=== PATIENT | female | born 1955 | race Caucasian/White ===

== ENCOUNTER 2021-04-27 14:59 | Outpatient (CLI) | payer MEDICARE | END 2021-04-27 15:00 | disposition home or self-care (01) | LOC: CSHMAMMO 14:59 | PROVIDERS: ATTEND Family Medicine | DX: Z12.31 Encounter for screening mammogram for malignant neoplasm of breast (principal); Z85.3 Personal history of malignant neoplasm of breast | CPT/HCPCS: 77063; 77067 ==

== ENCOUNTER 2021-12-05 17:39 | Emergency (ER) | payer MEDICARE, OTHER | END 2021-12-05 19:10 | disposition home or self-care (01) | LOC: CSHERS 17:39 | DX: S50.01XA Contusion of right elbow, initial encounter (principal); I10 Essential (primary) hypertension; W19.XXXA Unspecified fall, initial encounter ==

== ENCOUNTER 2022-01-25 13:37 | Outpatient (CLI) | payer MEDICARE, OTHER | END 2022-01-25 13:38 | disposition home or self-care (01) | LOC: CSHMRI 13:37 | PROVIDERS: ATTEND Physician Assistant | DX: G20 Parkinson's disease (principal); I67.89 Other cerebrovascular disease | CPT/HCPCS: 70551 ==

== ENCOUNTER 2022-08-15 07:37 | Emergency (ER) | payer MEDICARE ==
[2022-08-15] MEDS ORDERED: Morphine 4 MG/ML VIAL ONE (08:45)
[2022-08-15 08:56] LABS: #Basophils 0.1 10x3/uL (0.0-0.2); #Eosinphils 0.3 10x3/uL (0.0-0.5); #Monocytes 0.6 10x3/uL (0.0-1.1); #Neutrophils 7.6 10x3/uL (1.5-8.4); %Basophils 0.9 % (0.0-2.0); %Eosinophils 3.2 % (0.0-6.0); %Monocytes 5.9 % (0.0-10.0); %Neutrophils 78.7 % (40.0-75.0); Hemoglobin 10.5 g/dL (12.0-15.5); Mean Corpuscular HGB CONC 32.2 g/dL (32.0-36.0); Mean Corpuscular Hemoglobin 24.6 pg (27.0-33.0); Mean Corpuscular Volume 76.5 fl (81.6-98.3); Mean Platelet Volume 9.5 fl (7.4-10.4); Platelet Count 499 10x3/uL (150-450); RBC Distribution Width 14.9 % (11.5-14.5); Red Blood Cell (RBC) Count 4.26 10x6/uL (3.90-5.03); White Blood Cell (WBC) Count 9.7 10x3/uL (3.5-10.5)
[2022-08-15 09:33] LABS: ALT (SGPT) 9 U/L (8-55); AST (SGOT) 13 U/L (5-34); Alkaline Phosphatase 85 U/L (40-110); Anion Gap 14 mmol/L (10-20); BUN (Urea Nitrogen) 23 mg/dL (9.8-20.1); Bilirubin, Total 0.3 mg/dL (0.2-1.2); CK (CPK) 75 U/L (29-168); Calc. Creatinine Clearance 0 mL/min (70-130); Calcium 8.9 mg/dL (7.8-10.44); Carbon Dioxide 23 mmol/L (23-31); Chloride 99 mmol/L (98-107); Estimated GFR 49; Globulin 2.8 g/dL (2.4-3.5); Glucose 106 mg/dL (80-115); Magnesium 2.1 mg/dL (1.6-2.6); Potassium 4.2 mmol/L (3.5-5.1); Protein, Total 6.8 g/dL (5.8-8.1); Sodium 132 mmol/L (136-145)
== END 2022-08-15 10:11 | disposition home or self-care (01) ==
LOC: CSHERS 07:37
DX: M79.651 Pain in right thigh (principal); I10 Essential (primary) hypertension
CPT/HCPCS: 72192; 80053; 82550; 83735; 85025; 96374; J2270

== ENCOUNTER 2022-10-03 14:59 | Outpatient (CLI) | payer MEDICARE, OTHER | END 2022-10-03 15:00 | disposition home or self-care (01) | LOC: CSHMAMMO 14:59 | PROVIDERS: ATTEND Family Medicine | DX: Z12.31 Encounter for screening mammogram for malignant neoplasm of breast (principal) | CPT/HCPCS: 77063; 77067 ==

== ENCOUNTER 2023-11-01 10:58 | Outpatient (CLI) | payer MEDICARE, OTHER | END 2023-11-01 10:59 | disposition home or self-care (01) | LOC: CSHMRI 10:58 | PROVIDERS: ATTEND Family Medicine | DX: G20.A1 Parkinson's disease without dyskinesia, without mention of fluctuations (principal); G31.9 Degenerative disease of nervous system, unspecified; I67.9 Cerebrovascular disease, unspecified; I77.9 Disorder of arteries and arterioles, unspecified; L98.9 Disorder of the skin and subcutaneous tissue, unspecified | CPT/HCPCS: 70551 ==

== ENCOUNTER 2024-06-04 13:44 | Outpatient (CLI) | payer MEDICARE, OTHER | END 2024-06-04 13:45 | disposition home or self-care (01) | LOC: CSHULT 13:44 | PROVIDERS: ATTEND Urology | DX: N39.41 Urge incontinence (principal) | CPT/HCPCS: 76770 ==